=== PATIENT | male | born 1955 | race Two or more races ===

== ENCOUNTER 2024-10-20 11:52 | Emergency (ER) | payer MEDICARE ==
[~2024-10-20] VITALS: Ht 188 cm; Wt 131.8 kg
[~2024-10-20 11:52] MED LIST: ALLO100T PO; AMLO10TA PO; ASPI81TA52 PO; CHOL20002 PO; DULO60CA65 PO; GABA300C PO; HYDR12.55 PO; LORA-657 PO; LOSA50TA64 PO; MULT-1085 PO; OMEG1CAP21 PO; POTA8CAP20 PO; ROSU40TA PO; THIO300C PO; UBID100C16 PO; VITA-268 PO
[2024-10-20 11:53] VITALS: TEMP 98.1
--- NOTE | 2024-10-20 12:31 | RADIOLOGY REPORT ---
CLINICAL INDICATION: ELBOW PAIN TECHNIQUE: Right DI ELBOW, COMPLETE (3VW MIN) Comparison: None FINDINGS/IMPRESSION: : There is no evidence of acute fracture or dislocation. Severe swelling of the olecranon bursa; possibly bursitis.
--- NOTE | 2024-10-20 14:11 | Physician Documentation ---
History of Present Illness ~ Chief Complaint: Elbow pain Stated Complaint: "RT ELBOW IS SWOLLEN" Time Seen by MD: 13:54 Source: patient Mode of Arrival: POV Exam Limitations: no limitations HPI 69-year-old male with swelling to the right elbow after hitting it on something about a week ago. No other associated symptoms Tetanus within 5 years: Yes Medication Reconciliation Allergies: Coded Allergies: No Known Allergies (Unverified , 10/20/24) Scheduled Allopurinol* (Allopurinol*), 3 TAB PO DAILY, (Reported) Amlodipine Besylate (Amlodipine Besylate), 1 TABLET PO DAILY, (Reported) Aspirin (Aspirin EC), 1 TAB PO DAILY, (Reported) Cholecalciferol (Vitamin D3) (Vitamin D3), 1 CAP PO DAILY, (Reported) Duloxetine HCl (Duloxetine HCl), 1 CAP PO DAILY, (Reported) Gabapentin (Neurontin), 1 CAP PO DAILY, (Reported) Hydrochlorothiazide (Hydrochlorothiazide), 1 TAB PO DAILY, (Reported) Loratadine (Loratadine), 1 TAB PO DAILY, (Reported) Losartan Potassium (Losartan Potassium), 1 TAB PO DAILY, (Reported) Multivitamin (Multi Vitamin Daily), 1 TAB PO DAILY, (Reported) Ailey-3 Fatty Acids/Fish Oil (Ailey 3 Fish Oil Softgel), 1 EACH PO DAILY, (Reported) Potassium Chloride 8 MEQ* (Slow-K 8 Meq*), 1 CAP PO DAILY, (Reported) Rosuvastatin Calcium* (Crestor*), 1 TAB PO DAILY, (Reported) Thioctic Acid (Alpha Lipoic Acid), 300 MG PO DAILY, (Reported) Ubidecarenone (Coq-10), 200 MG PO DAILY, (Reported) Vitamin B Complex (B Complex), 1 TAB PO DAILY, (Reported) Past Medical History Past Medical History: No Pertinent History Review of Systems All Other Systems at this time: Reviewed and Negative Musculoskeletal: Reports: see HPI Physical Exam Vital Signs: RN Vital Signs have been reviewed: Yes, Temperature: 98.1, Source: Oral, Heart Rate: 92, Respiratory Rate: 16, BP: 144/96, Pulse Oximetry: 97, Weight: 131.820 Oxygen Flow Rate: 0 Physical Exam General: Alert, no apparent distress. Respiratory: Lungs clear, no respiratory distress. Chest: No accessory muscle use. Cardiovascular: Regular rate and rhythm, no murmurs. Extremities: Olecranon bursitis to right elbow no obvious deformity to the right upper extremity or bruising. Limited range of motion due to swelling Neurologic: Oriented x4. Psychiatric: Normal mood and affect. Skin: Normal color, warm and dry. No edema, no ecchymosis. Procedures I&D Procedure : Site: r elbow Anesthesia: Lidocaine w/ Epi Blade Size: other Prep/Supplies: betadine prep Incision: blood drained Tolerated Procedure Well?: yes, no complications Procedure Note 18 g needle joint aspiration 65 ml drained Progress Results/Orders Results/Orders Completed Orders - DENITA GARCIA NP Lidocaine 1% W/Epi 1:100,000 (Xylocaine (10/20/24 14:15) Vital Signs 10/20/24 10/20/24 11:53 13:35 Temp 98.1 Pulse 88 92 Resp 14 16 B/P (MAP) 151/84 144/96 (112) Pulse Ox 97 97 O2 Flow Rate 0 EKG/XRAY/CT/US/VASC/MRI Bone/Soft Tissue X-Ray (Ext.) : Additional Comment CLINICAL INDICATION: ELBOW PAIN TECHNIQUE: Right DI ELBOW, COMPLETE (3VW MIN) Comparison: None FINDINGS/IMPRESSION: : There is no evidence of acute fracture or dislocation. Severe swelling of the olecranon bursa; possibly bursitis. Medical Decision Making Findings Patient inadvertently hit right elbow about a week ago while working on something which caused some swelling to the right elbow appears differentially as olecranon bursitis x-ray was ordered to evaluate for any osseous abnormality which was negative. Due to the known factor, extent of swelling patient would like the bursitis drained we will wrap and follow up with primary care. Joint aspiration 65 mL of bloody drainage removed elbow wrapped with Arnel wrap Departure Time of Disposition: 14:55 Disposition: 01 HOME / SELF CARE / HOMELESS Impression: Primary Impression: Olecranon bursitis of right elbow Condition: Stable Discharge Instructions: Elbow Injury Additional Instructions: Keep a wrapped and follow up with primary care as olecranon bursitis or the fluid within your elbow can return. Take Tylenol for [id number] pain monitor for infection and follow up Referrals: NO PRIMARY CARE PROVIDER (PCP) Education Educated: Patient Educated regarding: diagnosis, treatment, need for follow up Signature Scribe Signature: No scribe Attestation: The note accurately reflects work and decisions made by me.Denita VEE 10/20/24 14:11 DENITA GARCIA NP Oct 20, 2024 14:11
[2024-10-20] MEDS: LIDOcaine 1% W/epiNEPHrine 1:100,000 20ml vial IJ ONE (14:44)
[2024-10-20 15:02] VITALS: BP 152/81; PULSE 95; RESP 16; O2SAT 95
== END 2024-10-20 15:08 | disposition home or self-care (01) ==
LOC: ER 11:52
DX: M70.21 Olecranon bursitis, right elbow (principal)
CPT/HCPCS: 10160; 73080; 99284; A6449; Z7610

== ENCOUNTER 2024-12-28 11:09 | Outpatient (CLI) | payer MEDICARE, OTHER ==
--- NOTE | 2024-12-28 14:15 | RADIOLOGY REPORT ---
CLINICAL INFORMATION: Right shoulder pain. TECHNIQUE: Multisequence multiplanar MRI images of the right shoulder were obtained without contrast. COMPARISON: No prior imaging of the right shoulder was available for comparison at the time of dictation. FINDINGS: Acromioclavicular joint: There is moderate to marked acromioclavicular hypertrophy and moderate edema. There is Type 2 acromion. Moderate fluid in the subacromial / subdeltoid bursa. Rotator cuff tendons: Full-thickness, full width tears of the supraspinatus and infraspinatus tendons from their insertions, with retraction of torn tendon fibers to the level of the glenohumeral joint. Full-thickness tear of the subscapularis tendon, with retraction of some torn tendon fibers to the level of the glenohumeral joint, while other torn tendon fibers are only mildly retracted from the level of the insertion. Teres minor tendon is intact. Biceps tendon: Proximal long head biceps tendon is not visualized along its intra-articular course or at the level of the bicipital groove, suspected tear, with retracted biceps tendon fibers visualized just distal to the level of the bicipital groove. Labrum: Limited evaluation of the labrum due to motion artifact. There is tear of the posterior superior labrum, posterior labrum, and posterior inferior labrum. There are associated displaced osseous fragments along the posterior superior, posterior, and posterior inferior glenoid, poorly evaluated due to motion artifact. Bones: Chronic appearing deformity at the posterior superior, posterior, and posterior inferior glenoid with displaced osseous fragments, with the largest measuring up to 1 cm. Osseous deformity appears to extend to the scapular neck. Muscles: Probable moderate to marked fatty atrophy of the supraspinatus and infraspinatus muscles. Likely moderate fatty atrophy of the subscapularis muscle. Mild to moderate atrophy in the deltoid musculature. Other: Motion artifact limits evaluation. Moderate to large glenohumeral joint effusion. IMPRESSION: 1. Motion limited study. 2. Full-thickness tears of the supraspinatus, infraspinatus, and subscapularis tendons as described above. 3. Findings consistent with a full-thickness tear of the proximal long head biceps tendon with retracted tendon fibers visualized just distal to the level of the bicipital groove. 4. Chronic appearing fracture deformity of the glenoid involving the posterior superior, posterior, and posterior inferior glenoid and extending to the scapular neck, with associated labral tears. 5. Moderate to marked acromioclavicular hypertrophy. 6. Moderate to large glenohumeral joint effusion. 7. Additional findings as detailed above.
== END 2024-12-28 23:59 | disposition home or self-care (01) ==
LOC: MRI02 11:09
PROVIDERS: ATTEND Student in an Organized Health Care Education/Training Program
DX: S42.141A Displaced fracture of glenoid cavity of scapula, right shoulder, initial encounter for closed fracture (principal); M25.511 Pain in right shoulder; M75.121 Complete rotator cuff tear or rupture of right shoulder, not specified as traumatic; M89.311 Hypertrophy of bone, right shoulder; R60.0 Localized edema; X58.XXXA Exposure to other specified factors, initial encounter; Y93.89 Activity, other specified; Y92.89 Other specified places as the place of occurrence of the external cause; Y99.8 Other external cause status
CPT/HCPCS: 73221